=== PATIENT | female | born 1970 | race African-American/Black ===

== ENCOUNTER 2022-10-29 14:49 | Outpatient (CLI) | payer BC | END 2022-10-29 14:50 | disposition home or self-care (01) | LOC: CSHRAD 14:49 | PROVIDERS: ATTEND Student in an Organized Health Care Education/Training Program | DX: M10.9 Gout, unspecified (principal) ==

== ENCOUNTER 2022-11-23 13:49 | Emergency (ER) | payer BC ==
[2022-11-23] MEDS ORDERED: Ketorolac Tromethamine 30 MG/ML VIAL ONE (14:42)
== END 2022-11-23 14:56 | disposition home or self-care (01) ==
LOC: CSHERS 13:49
DX: M54.50 Low back pain, unspecified (principal); E78.00 Pure hypercholesterolemia, unspecified; X50.0XXA Overexertion from strenuous movement or load, initial encounter; Y93.F2 Activity, caregiving, lifting
CPT/HCPCS: 96372; 99283; J1885

== ENCOUNTER 2023-03-05 08:41 | Outpatient (CLI) | payer BC | END 2023-03-05 08:42 | disposition home or self-care (01) | LOC: CSHMAMMO 08:41 | PROVIDERS: ATTEND Obstetrics & Gynecology | DX: R92.8 Other abnormal and inconclusive findings on diagnostic imaging of breast (principal); Z91.89 Other specified personal risk factors, not elsewhere classified; Z80.3 Family history of malignant neoplasm of breast | CPT/HCPCS: G0279 ==